=== PATIENT | female | born 1995 ===

== ENCOUNTER 2018-01-12 13:26 | Emergency (ER) | payer MEDICAID ==
[2018-01-12 13:33] VITALS: BP 112/66; PULSE 84; RESP 18; TEMP 98; O2SAT 99
--- NOTE | 2018-01-12 14:20 | ED PDOC ---
HPI: General Adult Time Seen by Provider: 01/12/18 13:33 Chief Complaint (Nursing): Medical Clearance Chief Complaint (Provider): confirmation History Per: Patient History/Exam Limitations: no limitations Additional Complaint(s): 22 year old female presented to ED for confirmation of . Patient reports taking a test last month which was positive. She indicates having intermittent nausea in the morning but no vomiting. Last menstrual period was some time in August (patient's menstrual cycle is irregular). Denies pelvic pain, abdominal pain, vaginal bleeding, dysuria, hematuria, or hx ectopic . A2. PCP: none provided Past Medical History Reviewed: Historical Data, Nursing Documentation, Vital Signs Vital Signs: Last Vital Signs Temp 98.0 F 01/12/18 13:30 Pulse 84 01/12/18 13:30 Resp 18 01/12/18 13:30 BP 112/66 01/12/18 13:30 Pulse Ox 99 01/12/18 14:24 - Medical History PMH: No Chronic Diseases - Surgical History Surgical History: No Surg Hx - Family History Family History: States: Unknown Family Hx - Allergies Allergies/Adverse Reactions: Allergies Allergy/AdvReac Type Severity Reaction Status Date / Time No Known Allergies Allergy Verified 01/12/18 13:30 Review of Systems ROS Statement: Except As Marked, All Systems Reviewed And Found Negative Gastrointestinal: Negative for: Abdominal Pain Genitourinary Female: Negative for: Vaginal Bleeding, Other (ectopic ) Musculoskeletal: Negative for: Other (pelvic pain) Physical Exam - Reviewed Nursing Documentation Reviewed: Yes Vital Signs Reviewed: Yes - Physical Exam Appears: Positive for: Well, Non-toxic, No Acute Distress Head Exam: Positive for: ATRAUMATIC, NORMAL INSPECTION, NORMOCEPHALIC Skin: Positive for: Normal Color, Warm. Negative for: Rash Eye Exam: Positive for: Normal appearance Neck: Positive for: Normal, Painless ROM Respiratory: Negative for: Respiratory Distress Gastrointestinal/Abdominal: Positive for: Normal Exam, Bowel Sounds, Soft. Negative for: Tenderness Back: Positive for: Normal Inspection. Negative for: L CVA Tenderness, R CVA Tenderness, Vertebral Tenderness Neurologic/Psych: Positive for: Alert, Oriented. Negative for: Aphasia, Facial Droop - Laboratory Results Urine POC: Positive - ECG O2 Sat by Pulse Oximetry: 99 (RA) Pulse Ox Interpretation: Normal Medical Decision Making Medical Decision Making: Initial impression: confirmation Initial plan: ED urine test 14:15 Upon provider reevaluation patient is feeling better, is medically stable, and requires no further treatment in the ED at this time. There is agreement to discharge plan. Return if symptoms persist or worsen. Scribe Attestation: Documented by Rodrigo Mejia acting as a scribe for Julio César Mayorga. Provider Scribe Attestation: All medical record entries made by the Scribe were at my direction and personally dictated by me. I have reviewed the chart and agree that the record accurately reflects my personal performance of the history, physical exam, medical decision making, and the department course for this patient. I have also personally directed, reviewed, and agree with the discharge instructions and disposition. Disposition - Clinical Impression Clinical Impression: - Patient ED Disposition Is Patient to be Admitted: No - Disposition Referrals: [facility] [Outside] [facility] [Outside] Disposition: Routine/Home Disposition Time: 14:15 Condition: STABLE Additional Instructions: Follow up with OBGYN for further evaluation Return to ED immediately if symptoms worsen Instructions: Care Forms: [employer] (Romanian) Print Language: LAO
== END 2018-01-12 14:09 | disposition home or self-care (01) ==
LOC: H.ER 13:26
DX: O21.9 Vomiting of pregnancy, unspecified (principal)